=== PATIENT | female | born 1960 | race Caucasian/White ===

== ENCOUNTER 2018-04-01 16:04 | Emergency (ER) | payer BC ==
[2018-04-01 16:54] VITALS: BP 129/84
--- NOTE | 2018-04-01 17:01 | UC ---
UC General HPI - HPI Summary HPI Summary: PT FOUND A TICK ON HER l SHOULDER TODAY AND REMOVED IT. THEY WERE IN THE [place] YESTERDAY CUTTING TREES. IT WAS NOT THERE PRIOR TO THAT AND SHE HAD NOT BEEN OUTSIDE PRIOR. [place] ARE VISITING FROM [place]. NO JOINT PAINS, FEVER OR RASH. 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 Pain Intensity: 0 Associated Signs & Symptoms: Negative: Fever - Allergy/Home Medications Allergies/Adverse Reactions: Allergies Allergy/AdvReac Type Severity Reaction Status Date / Time No Known Allergies Allergy Verified 04/01/18 16:50 Home Medications: Home Medications Desvenlafaxine Succinate [Pristiq] 100 mg PO DAILY 04/01/18 [History Confirmed 04/01/18] Lisinopril TAB* [Prinivil TAB*] 20 mg PO DAILY 04/01/18 [History Confirmed 04/01] PMH/Surg Hx/FS Hx/Imm Hx Cardiovascular History: Hypertension Psychological History: Depression - Surgical History Surgical History: None - Family History Known Family History: Positive: None - Social History Lives: With Family Alcohol Use: Daily Alcohol Amount: 2-3 glasses wine Substance Use Type: None Smoking Status (MU): Never Smoked Tobacco - Immunization History Vaccination Up to Date: Yes Review of Systems Constitutional: Negative Skin: Negative Eyes: Negative ENT: Negative Respiratory: Negative Cardiovascular: Negative Gastrointestinal: Negative Genitourinary: Negative Motor: Negative Neurovascular: Negative Musculoskeletal: Negative Neurological: Negative Psychological: Negative Is Patient Immunocompromised?: No All Other Systems Reviewed And Are Negative: Yes Physical Exam Triage Information Reviewed: Yes Appearance: Well-Appearing Vital Signs: Initial Vital Signs Temp 98.8 F 04/01/18 16:46 Pulse 70 04/01/18 16:46 Resp 16 04/01/18 16:46 BP 129/84 04/01/18 16:46 Pulse Ox 98 04/01/18 16:46 Vital Signs Reviewed: Yes Eyes: Positive: Conjunctiva Clear ENT: Positive: Normal ENT inspection Neck: Positive: Supple, Nontender, No Lymphadenopathy Respiratory: Positive: Lungs clear, Normal breath sounds Cardiovascular: Positive: RRR, No Murmur Abdomen Description: Positive: Nontender, No Organomegaly, Soft Bowel Sounds: Positive: Present Musculoskeletal: Positive: ROM Intact Neurological: Positive: Alert Psychological: Positive: Age Appropriate Behavior Skin Exam: Normal, Other - [place] spot L deltoid with tiny black spec where tick removed. no bullseye. Course/Dx - Course Course Of Treatment: tick reportedly not engorged and short duration of attachment thus no tx. pt cleaned site at time of removal. - Differential Dx - Multi-Symptom Provider Diagnoses: tick bite L arm Discharge - Sign-Out/Discharge Documenting (check all that apply): Discharge/Admit/Transfer - Discharge Plan Condition: Stable Disposition: HOME Patient Education Materials: Tick Bite (ED) Referrals: Non Staff,Doctor [Primary Care Provider] - Additional Instructions: FOLLOW UP WITH PHYSICIAN AT HOME NEEDED. - Billing Disposition and Condition Condition: STABLE Disposition: HOME
== END 2018-04-01 17:26 | disposition home or self-care (01) ==
LOC: UCCORT 16:04
DX: S30.861A Insect bite (nonvenomous) of abdominal wall, initial encounter (principal); W57.XXXA Bitten or stung by nonvenomous insect and other nonvenomous arthropods, initial encounter; Y93.9 Activity, unspecified; Y92.9 Unspecified place or not applicable; I10 Essential (primary) hypertension; F32.9 Major depressive disorder, single episode, unspecified
CPT/HCPCS: 99201; G0463